=== PATIENT | female | born 1965 | race Caucasian/White ===

== ENCOUNTER 2018-02-06 13:53 | Emergency (ER) | payer OTHER ==
[~2018-02-06] VITALS: Ht 162.6 cm; Wt 81.2 kg
[2018-02-06 15:39] LABS: BASOPHILS % (AUTO) 0.4 % (0.0-2.0); EOSINOPHILS # (AUTO) 0.2 K/uL (0.0-0.7); EOSINOPHILS % (AUTO) 2.3 % (0.0-7.0); HEMATOCRIT 44.2 % (31.2-41.9); HEMOGLOBIN 14.9 g/dL (10.9-14.3); LYMPHOCYTES # (AUTO) 2.5 K/uL (20.0-40.0); LYMPHOCYTES % (AUTO) 27.2 % (20.5-51.5); MEAN CORPUSCULAR HEMOGLOBIN 30.7 uug (24.7-32.8); MEAN CORPUSCULAR HGB CONC 34 g/dL (32.3-35.6); MEAN CORPUSCULAR VOLUME 91.3 fL (75.5-95.3); MONOCYTES # (AUTO) 0.5 K/uL (2.0-10.0); MONOCYTES % (AUTO) 5.7 % (0.0-11.0); NEUTROPHILS % (AUTO) 64.4 % (38.5-71.5); PLATELET COUNT (AUTO) 210 K/uL (179-408); RED BLOOD CELL COUNT(AUTO) 4.85 MIL/uL (3.63-4.92); WHITE BLOOD COUNT (AUTO) 9.2 K/uL (3.8-11.8)
[2018-02-06 15:46] LABS: CREATININE 0.8 mg/dL (0.6-1.3)
[2018-02-06 15:59] LABS: BILIRUBIN,DIRECT 0.1 mg/dL (0.0-0.2); BILIRUBIN,TOTAL 0.4 mg/dL (0.2-1.0); TOTAL PROTEIN, SERUM 7.1 g/dL (6.4-8.2)
--- NOTE | 2018-02-06 16:12 | NUR ---
Patient discharged to home in stable conditon. Written and verbal after care instructions given. Patient verbalizes understanding of instructions.
[2018-02-06 16:13] VITALS: BP 108/69
== END 2018-02-06 16:13 | disposition home or self-care (01) ==
LOC: ER 13:53
DX: K57.92 Diverticulitis of intestine, part unspecified, without perforation or abscess without bleeding (principal); F17.210 Nicotine dependence, cigarettes, uncomplicated; Z88.0 Allergy status to penicillin
CPT/HCPCS: 36415; 70030-TC; 71045; 83690; 85025; 85730; A4663

== ENCOUNTER 2018-07-07 22:41 | Emergency (ER) | payer OTHER ==
[~2018-07-07] VITALS: Ht 134.6 cm; Wt 81.6 kg
--- NOTE | 2018-07-07 23:10 | NUR ---
PT A/OX4, RESPONSIVE TO VERBAL AND TACTILE STIMULI. PT C/O L ARM AND L LEG NUBMNESS X 4 DAYS. PMSC INTACT AND NORMAL, CAP REFILL < 3 SECS. NO WEAKNESS NOTED ON L SIDE. SPEECH IS NORMAL. VSS. PT DENIES PAIN, C/P, SOB, N/V/D, HEADACHE, DIZZINESS.
--- NOTE | 2018-07-07 23:19 | NUR ---
SAMM MORALES AT BEDSIDE.
[2018-07-07 23:41] LABS: BASOPHILS # (AUTO) 0.1 K/uL (0.0-8.0); BASOPHILS % (AUTO) 0.8 % (0.0-2.0); EOSINOPHILS # (AUTO) 0.2 K/uL (0.0-0.7); EOSINOPHILS % (AUTO) 2.8 % (0.0-7.0); HEMATOCRIT 40.4 % (31.2-41.9); LYMPHOCYTES # (AUTO) 3.3 K/uL (20.0-40.0); LYMPHOCYTES % (AUTO) 37.9 % (20.5-51.5); MEAN CORPUSCULAR HEMOGLOBIN 31.2 uug (24.7-32.8); MEAN CORPUSCULAR HGB CONC 35 g/dL (32.3-35.6); MEAN CORPUSCULAR VOLUME 89.7 fL (75.5-95.3); MONOCYTES # (AUTO) 0.6 K/uL (2.0-10.0); NEUTROPHILS # (AUTO) 4.4 K/uL (1.8-8.9); NEUTROPHILS % (AUTO) 51.5 % (38.5-71.5); PLATELET COUNT (AUTO) 201 K/uL (179-408); RED BLOOD CELL COUNT(AUTO) 4.51 MIL/uL (3.63-4.92); WHITE BLOOD COUNT (AUTO) 8.6 K/uL (3.8-11.8)
[2018-07-07 23:59] LABS: CREATININE 0.9 mg/dL (0.6-1.3); POTASSIUM 3.7 mmol/L (3.5-5.1)
--- NOTE | 2018-07-08 01:01 | NUR ---
US TECH AT BEDSIDE.
--- NOTE | 2018-07-08 01:13 | NUR ---
SAMM MORALES AT BEDSIDE FOR PT UPDATE.
--- NOTE | 2018-07-08 01:23 | NUR ---
Patient discharged to home in stable conditon. Written and verbal after care instructions given. Patient verbalizes understanding of instructions. PT D/C W/ PRESCRIPTION. ALL BELONGINGS W/ PT. PT SELF-AMBULATED WITHOUT DIFFICULTY.
[2018-07-08 01:25] VITALS: BP 122/56
== END 2018-07-08 01:28 | disposition home or self-care (01) ==
LOC: ER 22:41
DX: R20.0 Anesthesia of skin (principal); R07.9 Chest pain, unspecified; M79.622 Pain in left upper arm; F17.200 Nicotine dependence, unspecified, uncomplicated; Z88.0 Allergy status to penicillin
CPT/HCPCS: 36415; 70030-TC; 85025; 93005; A4663